=== PATIENT | female | born 1985 | race African-American/Black ===

== ENCOUNTER 2022-06-10 15:28 | Emergency (ER) | payer MEDICAID ==
[~2022-06-10] VITALS: Ht 165.1 cm; Wt 66.0 kg
[2022-06-10] MEDS ORDERED: PANTOPRAZOLE SODIUM 40 MG/VIAL IV STA (16:44)
[2022-06-10 17:34] VITALS: BP 126/74
[2022-06-10 17:51] LABS: BASOPHILS % 0.6 % (0.0-2.0); EOSINOPHILS % 1.8 % (0.0-5.0); HEMATOCRIT. 34.1 % (36.0-48.0); HEMOGLOBIN. 10.7 g/dL (12.0-16.0); LYMPHOCYTES % 26.7 % (20.0-50.0); MEAN CORPUSCULAR HEMOGLOBIN 25.9 pg (28.0-32.0); MEAN CORPUSCULAR VOLUME 82.8 fL (81.0-99.0); MEAN PLATELET VOLUME 7.4 fl (7.4-10.4); MONOCYTES % 8.4 % (2.0-8.0); NEUTROPHILS % 62.5 % (40.0-76.0); PLATELET 252 x1000/uL (130-400); RED BLOOD CELL COUNT 4.11 mill/uL (4.2-5.4)
[2022-06-10 17:56] LABS: CHLORIDE 108 mEq/L (98-107)
[2022-06-10 18:02] LABS: HCG SCREEN NEGATIVE
[2022-06-10] MEDS ORDERED: ACET-2708 MT (19:14)
[2022-06-10] MEDS ORDERED: LIDO30CR46 TP (19:15)
== END 2022-06-10 20:40 | disposition home or self-care (01) ==
LOC: ER 15:28
DX: D64.9 Anemia, unspecified (principal); R21 Rash and other nonspecific skin eruption; F41.9 Anxiety disorder, unspecified; J45.909 Unspecified asthma, uncomplicated; F31.9 Bipolar disorder, unspecified; Z86.73 Personal history of transient ischemic attack (TIA), and cerebral infarction without residual deficits
CPT/HCPCS: 36415; 80053; 83690; 84703; 85025; 86850; 86900; 86901; 87593; 96374; 99283; C9113